=== PATIENT | male | born 1970 | race African-American/Black ===

== ENCOUNTER 2020-06-23 12:58 | Outpatient (REF) | payer MEDICAID, SELFPAY ==
--- NOTE | 2020-06-23 13:00 | MR_ITS ---
EXAMINATION: MR LUMBAR SPINE WITHOUT CONTRAST CLINICAL INFORMATION: Chronic lower back pain. Left leg pain greater than right. COMPARISON: None TECHNIQUE: MRI of the lumbar spine was obtained using routine sequences without contrast. FINDINGS: VERTEBRAL BODIES AND PARASPINAL STRUCTURES: Normal vertebral body alignment. The lumbar lordosis is maintained. No acute fracture or subluxation. No loss of vertebral body height. Mild loss of intervertebral disc height with disc desiccation at L5-S1. Small anterior endplate osteophytes at L2-L3 and L3-L4. No abnormal marrow signal. The visualized paraspinal soft tissues are unremarkable. CONUS MEDULLARIS AND CAUDA EQUINA: Normal, terminating at the level of T12. SPINAL LEVELS: L1-L2: No significant disc bulge. No central canal or neural foraminal stenosis. L2-L3: No significant disc bulge. No central canal or neural foraminal stenosis. L3-L4: Shallow right subarticular disc protrusion which contacts the exiting right L3 nerve root. Bilateral facet arthropathy with mild right neural foraminal stenosis. L4-L5: No significant disc bulge. Bilateral facet arthropathy with mild bilateral neural foraminal stenosis. L5-S1: Broad-based disc bulge with a shallow right paracentral disc protrusion which abuts the traversing right S1 nerve root. Bilateral facet arthropathy without significant neural foraminal stenosis. MR/MR lumbar spine wo con IMPRESSION: 1. L3-L4 shallow right subarticular disc protrusion which contacts the exiting right L3 nerve root. Bilateral facet arthropathy with mild right neural foraminal stenosis. 2. L4-L5 bilateral facet arthropathy with mild bilateral neural foraminal stenosis. 3. L5-S1 broad-based disc bulge with a shallow right paracentral disc protrusion which abuts the traversing right S1 nerve root. Bilateral facet arthropathy without significant neural foraminal stenosis.
== END 2020-06-23 12:59 | disposition home or self-care (01) ==
LOC: HO.MRI 12:58
PROVIDERS: Visit Provider Internal Medicine
DX: M54.9 Dorsalgia, unspecified (principal)
CPT/HCPCS: 72148

== ENCOUNTER 2020-09-05 15:07 | Outpatient (REF) | payer MEDICAID, SELFPAY | END 2020-09-05 15:08 | disposition home or self-care (01) | LOC: HO.LAB 15:07 | PROVIDERS: PCP Internal Medicine; Visit Provider Internal Medicine | DX: Z20.822 Contact with and (suspected) exposure to COVID-19 (principal) | CPT/HCPCS: 36415; C9803; U0003 ==